=== PATIENT | female | born 1970 | race African-American/Black ===

== ENCOUNTER 2019-06-23 10:31 | Emergency (ER) | payer OTHER ==
[~2019-06-23] VITALS: Ht 170.2 cm; Wt 64.4 kg
--- NOTE | 2019-06-23 10:31 | NUR ---
Ambulatory to 1 in custody. Right wrist cuffed to chair accompained by Dora Griffith.
[2019-06-23 11:15] VITALS: BP_SYST 140
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
--- NOTE | 2019-06-23 11:30 | NUR ---
Written and verbal consent obtained from patient for blood alcohol, name and verified by patient. Disinfected patient's skin with iodine that did not contain alcohol or other volatile organic compound. Collected the blood from the subject named by venipuncture, in the presence of Officer Elizabeth Rondon. Used a sterile, dry hypodermic needle and dry vacuum blood collection. Two dry vacuum blood collection was supplied by the officer named above. Withdrew a specimen of blood from left FA of the subject named above. Inverted both blood tube several times to ensure that the preservative and anticoagulant were thoroughly mixed in the blood specimen. I initialed both blood tube label for identification. The labeled blood tubes was handed directly to the Officer named above. The blood tubes stopper remained in place while I had possession of the blood tubes. The Officer placed tubes into envelope and sealed it in my presence. Envelope initialed by myself and Officer named above. Patient tolerated well, bandage applied, and bleeding controlled.
--- NOTE | 2019-06-23 12:10 | NUR ---
EVER officer Alcon given written and verbal discharge instructions and verbalizes understanding. ER MD discussed with patient the results and treatment provided. Patient in stable condition. ID arm band removed. Patient educated on pain management and to follow up with PMD. Opportunity for questions provided and answered. Medication side effect fact sheet provided.
== END 2019-06-23 12:10 ==
LOC: SED 10:31
DX: Z02.89 Encounter for other administrative examinations (principal); L93.0 Discoid lupus erythematosus; Z98.84 Bariatric surgery status; Z88.0 Allergy status to penicillin; Z88.1 Allergy status to other antibiotic agents
CPT/HCPCS: 99283